=== PATIENT | male | born 1980 | race African-American/Black ===

== ENCOUNTER 2020-12-02 17:33 | Emergency (ER) | payer MEDICAID, SELFPAY ==
[2020-12-02] VITALS (7 sets, daily range): BP systolic 115–117; BP diastolic 61–77; PULSE 80–99; RESP 14–16; TEMP 36.7; O2SAT 99; BMI 25.0
--- NOTE | 2020-12-02 18:21 | EKG12_ITS ---
Test Reason : MHC Blood Pressure : / mmHG Vent. Rate : 065 BPM Atrial Rate : 065 BPM P-R Int : 126 ms QRS Dur : 086 ms QT Int : 396 ms P-R-T Axes : 068 -63 113 degrees QTc Int : 411 ms Normal sinus rhythm Left axis deviation Lateral infarct , age undetermined Inferior-posterior infarct , age undetermined T-wave abnormality: Consider myocardial ischemia: Anterior-Lateral Abnormal ECG Confirmed by GENEVA RUTLEDGE, KENNETH ([id number]), editor book RODOLFO ALCANTARA ([id number]) on 12/07/2020 9:41:29 AM Referred By: MR Confirmed By:KENNETH BEAN MD
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
[2020-12-02 18:48] LABS: Absolute Lymphocyte Count 1.34 X10^3/uL (0.83-4.51); Absolute Neutrophil Count 1.9 X10^3/uL (2.0-7.7); Basophil# 0.02 X10^3/uL; Basophil% 0.5 % (0-1); Eosinophil# 0.05 X10^3/uL; Eosinophils% 1.4 % (0-5); Hemoglobin 15.5 g/dL (13.0-16.5); Lymphocyte # 1.34 X10^3/ul (0.83-4.51); Lymphocyte % 36.5 % (19-41); Mean Corp Hgb Conc 32.3 g/dL (32-36); Mean Platelet Vol. 10.7 fl (6.2-12.0); Monocyte# 0.33 X10^3/uL; NRBC Flagged by Analyzer 0 % (0-5); Neutrophil # 1.93 X10^3/uL (2.7-7.7); Neutrophil % 52.6 % (47-70); Platelet Count 232 K/mm3 (150-450); RBC Distribution Width CV 13.2 % (11.6-14.6); RBC Distribution Width SD 45.1 fl (35.1-43.9); Red Blood Count 5.16 M/mm3 (4.6-6.2); White Blood Count 3.7 K/mm3 (4.4-11.0)
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
--- NOTE | 2020-12-02 19:15 | CM.ED ---
SOCIAL WORK Call to [facility]. Intake reports beds available. Will fax referral once patient is medically cleared. Hailey Price, CLINICAL FIELD SPECIALIST, BUSINESS SYSTEMS ADVISOR
[2020-12-02 19:16] LABS: Troponin-I HS 11.2 pg/mL (3.0-78.5)
[2020-12-02 19:18] LABS: Anion Gap 3 (5-15); BUN 16 mg/dL (7-18); Calcium,Total 9.6 mg/dL (8.5-10.1); Chloride 109 mmol/L (98-107); Creatinine, Serum 1.33 mg/dL (0.70-1.30); EST Glomerular Filtration Rate 63 mL/min (>60); Est Glom Filt Rate - Afr Amer 77 mL/min (>60); Estimated Creatinine Clearance 73.83 ml/min; Glucose 93 mg/dL (74-106); Potassium 4.1 mmol/L (3.5-5.1); Sodium Level 140 mmol/L (136-145); Thyroid Stim Hormone (TSH) 0.57 uIU/mL (0.358-3.74)
[2020-12-02 19:20] LABS: Amphetamine Urine VISTA NEGATIVE (<1000 ng/mL); Barbiturate Urine VISTA NEGATIVE (< 200 ng/mL); Benzodiazepine Urine VISTA NEGATIVE (< 200 ng/mL); Cocaine Urine VISTA NEGATIVE (< 300 ng/mL); Ecstacy Urine VISTA POSITIVE (< 500 ng/mL); Methadone Urine VISTA NEGATIVE (< 300 ng/mL); PCP Urine VISTA NEGATIVE (< 25 ng/mL); THC Urine VISTA POSITIVE (< 50 ng/mL); Vista UDS pH Range 5
--- NOTE | 2020-12-02 19:36 | CM.ED ---
SOCIAL WORK Referral faxed to [facility]. Pending acceptance at this time. Hailey Price, SURGICAL NURSE, SALES AGENT PROTECTIVE SERVICE
--- NOTE | 2020-12-02 20:32 | CM.ED ---
SOCIAL WORK Call to [facility]. Per intake, awaiting call back from provider, anticipate acceptance. Intake to call medical secretary receptionist with accepting information. Staff delia. Hailey Price MSW, BACKER UP
[2020-12-02 21:48] LABS: CPK Total, Creatine Kinase 218 U/L (39-308)
[2020-12-02] MEDS: traZODone 100 MG Tablet PO (22:52)
[2020-12-03] VITALS: RESP 16
--- NOTE | 2020-12-03 00:11 | NURSING ---
ACCEPTED TO [facility] BY DR. ESQUIVEL [phone] REPORT ROOM 111 BED A
== END 2020-12-03 00:33 ==
PROVIDERS: Emergency Provider Emergency Medicine
DX: R45.851 Suicidal ideations (principal); E78.5 Hyperlipidemia, unspecified; F32.9 Major depressive disorder, single episode, unspecified; Z79.82 Long term (current) use of aspirin; Z79.899 Other long term (current) drug therapy
CPT/HCPCS: 36415; 80048; 80307; 82077; 82550; 84443; 84484; 85025; 87426; 93005; 99285; A4216